=== PATIENT | female | born 1990 | race Caucasian/White ===

== ENCOUNTER → 2017-07-16 | Outpatient (CLI) | payer OTHER ==
[~2017-07-16] MED LIST: ADDERALL 10 MG10 MG PO
== END ==
LOC: M.ULTRA 15:03
DX: R92.8 Other abnormal and inconclusive findings on diagnostic imaging of breast (principal); N64.4 Mastodynia; N63.20 Unspecified lump in the left breast, unspecified quadrant

== ENCOUNTER → 2017-08-04 | Outpatient (CLI) | payer OTHER | LOC: M.MRI 13:12 | DX: N63.20 Unspecified lump in the left breast, unspecified quadrant (principal); R92.2 Inconclusive mammogram ==

== ENCOUNTER 2017-09-01 16:30 | Emergency (ER) | payer OTHER ==
[~2017-09-01] VITALS: Ht 177.8 cm; Wt 88.5 kg
[2017-09-01 17:31] LABS: URINE BILIRUBIN NEGATIVE (Negative); URINE BLOOD 3+ (Negative); URINE CLARITY CLEAR; URINE COLOR YELLOW; URINE GLUCOSE-RANDOM NEGATIVE (Negative); URINE KETONES NEGATIVE (Negative); URINE LEUKOCYTES-REFLEX NEGATIVE (Negative); URINE NITRITE-REFLEX NEGATIVE (Negative); URINE PROTEIN NEGATIVE (Negative); URINE UROBILINOGEN 0.2 E.U./dl (0.2-1.0)
[2017-09-01 18:04] LABS: SQUAMOUS 0-3 Few /LPF (0-3)
[2017-09-01 18:05] LABS: CASTS None Seen /LPF (None Seen); CRYSTALS None Seen /LPF (None Seen); MUCUS None Seen strn/LPF (None Seen); URINE RBC 3-10 Few /HPF (0-2); URINE WBC-REFLEX None Seen /HPF (0-5)
[2017-09-01 18:06] LABS: BACTERIA-REFLEX None Seen /HPF (None Seen)
[2017-09-01 18:13] VITALS: BP 115/60
== END 2017-09-01 18:13 | disposition home or self-care (01) ==
LOC: M.ERS 16:30
PROVIDERS: Physician Assistant
DX: N93.8 Other specified abnormal uterine and vaginal bleeding (principal)

== ENCOUNTER → 2017-09-18 | Outpatient (CLI) | payer OTHER | LOC: M.ULTRA 09-17 15:00 | DX: N83.201 Unspecified ovarian cyst, right side (principal); R93.8 Abnormal findings on diagnostic imaging of other specified body structures; N93.9 Abnormal uterine and vaginal bleeding, unspecified ==

== ENCOUNTER → 2017-09-30 | Outpatient (CLI) | payer OTHER | LOC: M.MRI 13:30 | DX: M75.102 Unspecified rotator cuff tear or rupture of left shoulder, not specified as traumatic (principal) ==

== ENCOUNTER 2017-10-19 10:01 | Emergency (ER) | payer OTHER ==
[~2017-10-19] VITALS: Ht 177.8 cm; Wt 89.8 kg
[2017-10-19 10:45] LABS: ABSOLUTE EOSINOPHILS 0.1 thou/uL (0.0-0.7); ABSOLUTE LYMPHOCYTES 1.4 thou/uL (0.8-5.3); ABSOLUTE MONOCYTES 0.6 thou/uL (0.0-1.2); ABSOLUTE NEUTROPHILS 5.1 thou/uL (1.6-8.1); BASOPHILS 0.5 %; EOSINOPHILS 0.7 %; HEMATOCRIT 40.8 % (37.0-47.0); HEMOGLOBIN 13.6 gm/dL (12.0-15.0); MCH 29.6 pg (26.0-34.0); MCHC 33.4 g/dL (28.0-37.0); MCV 88.6 fL (80.0-100.0); MONOCYTES 8.2 %; MPV 7.9 fl. (7.2-11.1); NUCLEATED RBCS 0 /100WBC; PLATELET COUNT* 289 thou/uL (150-400); POLYS 70.6 %; RDW-CV 13.1 % (10.5-14.5); WBC 7.2 thou/uL (4.0-11.0)
[2017-10-19 10:49] LABS: CALCIUM 8.8 mg/dL (8.5-10.1); CREATININE 0.7 mg/dL (0.6-1.3); POTASSIUM 3.7 mmol/L (3.5-5.1)
[2017-10-19 10:50] LABS: URINE BILIRUBIN NEGATIVE (Negative); URINE BLOOD NEGATIVE (Negative); URINE CLARITY CLEAR; URINE COLOR YELLOW; URINE GLUCOSE-RANDOM NEGATIVE (Negative); URINE KETONES NEGATIVE (Negative); URINE LEUKOCYTES-REFLEX NEGATIVE (Negative); URINE NITRITE-REFLEX NEGATIVE (Negative); URINE PROTEIN NEGATIVE (Negative); URINE SPECIFIC GRAVITY 1.015 (1.005-1.030); URINE UROBILINOGEN 0.2 E.U./dl (0.2-1.0)
[2017-10-19 11:00] LABS: ALBUMIN 3.6 g/dL (3.4-5.0); TOTAL BILIRUBIN 0.4 mg/dL (<0.1-1.0); TOTAL PROTEIN 7.8 g/dL (6.4-8.2)
[2017-10-19 11:01] LABS: AMP/METHAMP Negative (Negative); BARBITURATES Negative (Negative); BENZODIAZEPINES Negative (Negative); COCAINE Negative (Negative); METHADONE Negative (Negative); OPIATES POSITIVE (Negative); PCP Negative (Negative); THC Negative (Negative)
[2017-10-19 12:50] VITALS: BP 112/62
== END 2017-10-19 12:53 | disposition home or self-care (01) ==
LOC: M.ERS 10:01
PROVIDERS: Nurse Practitioner Family
DX: H57.04 Mydriasis (principal)

== ENCOUNTER → 2017-10-22 | Outpatient (CLI) | payer OTHER | LOC: M.MRI 10-20 16:30 | DX: M50.122 Cervical disc disorder at C5-C6 level with radiculopathy (principal) ==

== ENCOUNTER → 2017-11-03 | Outpatient (CLI) | payer OTHER | LOC: M.ULTRA 07:30 | DX: N93.9 Abnormal uterine and vaginal bleeding, unspecified (principal); R93.8 Abnormal findings on diagnostic imaging of other specified body structures ==

== ENCOUNTER → 2017-12-30 | Outpatient (CLI) | payer OTHER | LOC: M.RAD 09:36 | DX: N63.20 Unspecified lump in the left breast, unspecified quadrant (principal); R92.2 Inconclusive mammogram ==

== ENCOUNTER 2018-05-14 16:39 | Emergency (ER) | payer OTHER ==
[~2018-05-14] VITALS: Ht 177.8 cm; Wt 97.5 kg
[2018-05-14] MEDS ORDERED: FLEXERIL PO (16:53)
[2018-05-14] MEDS ORDERED: LIDOCAINE PAIN1 EACH TOP (16:53)
[2018-05-14] MEDS ORDERED: IBUPROFEN 800800 M1 PO (16:53)
[2018-05-14] MEDS ORDERED: NORCO 5-325 TA1 EACH PO (18:22)
[2018-05-14] MEDS ORDERED: MEDROLDOSEPACK PO (18:48)
[2018-05-14 19:29] VITALS: BP 121/73
== END 2018-05-14 19:29 | disposition home or self-care (01) ==
LOC: M.ERS 16:39
DX: R51 Headache (principal); M54.6 Pain in thoracic spine; M54.2 Cervicalgia

== ENCOUNTER 2019-05-19 16:23 | Emergency (ER) | payer BC ==
[~2019-05-19] VITALS: Ht 177.8 cm; Wt 98.9 kg
[~2019-05-19 16:23] MED LIST changes: +FLEXERIL PO; +IBUPROFEN 800800 M1 PO; +LIDOCAINE PAIN1 EACH TOP; +MEDROLDOSEPACK PO; +NORCO 5-325 TA1 EACH PO
[2019-05-19 16:55] LABS: URINE BILIRUBIN NEGATIVE (Negative); URINE BLOOD NEGATIVE (Negative); URINE CLARITY CLEAR; URINE COLOR YELLOW; URINE GLUCOSE-RANDOM NEGATIVE (Negative); URINE KETONES NEGATIVE (Negative); URINE LEUKOCYTES-REFLEX NEGATIVE (Negative); URINE NITRITE-REFLEX NEGATIVE (Negative); URINE PROTEIN NEGATIVE (Negative); URINE UROBILINOGEN 0.2 E.U./dl (0.2-1.0)
[2019-05-19 17:00] LABS: ABSOLUTE BASOPHILS 0.1 thou/uL (0.0-0.2); ABSOLUTE EOSINOPHILS 0.1 thou/uL (0.0-0.7); ABSOLUTE LYMPHOCYTES 2.3 thou/uL (0.8-5.3); ABSOLUTE MONOCYTES 0.8 thou/uL (0.0-1.2); ABSOLUTE NEUTROPHILS 2.9 thou/uL (1.6-8.1); BASOPHILS 0.8 %; EOSINOPHILS 1.2 %; HEMATOCRIT 37.5 % (37.0-47.0); HEMOGLOBIN 12.7 gm/dL (12.0-15.0); LYMPHOCYTES 37.4 %; MCH 28.3 pg (26.0-34.0); MCHC 33.8 g/dL (28.0-37.0); MCV 83.7 fL (80.0-100.0); MONOCYTES 12.4 %; MPV 7.5 fl. (7.2-11.1); NUCLEATED RBCS 0 /100WBC; PLATELET COUNT* 303 thou/uL (150-400); POLYS 48.2 %; RBC 4.48 mil/uL (4.20-5.00); RDW-CV 14.1 % (10.5-14.5); WBC 6.1 thou/uL (4.0-11.0)
[2019-05-19 17:02] LABS: AMP/METHAMP Negative (Negative); BARBITURATES POSITIVE (Negative); BENZODIAZEPINES Negative (Negative); COCAINE Negative (Negative); METHADONE Negative (Negative); OPIATES POSITIVE (Negative); PCP Negative (Negative); THC Negative (Negative)
[2019-05-19 17:07] LABS: CALCIUM 8.6 mg/dL (8.5-10.1); CREATININE 0.7 mg/dL (0.6-1.3); POTASSIUM 3.5 mmol/L (3.5-5.1)
[2019-05-19 17:11] LABS: ALBUMIN 3.7 g/dL (3.4-5.0); TOTAL BILIRUBIN 0.2 mg/dL (<0.1-1.0); TOTAL PROTEIN 7.6 g/dL (6.4-8.2)
[2019-05-19] MEDS ORDERED: LOMAIRA8 MG PO (17:34)
[2019-05-19] MEDS ORDERED: VERAPAMIL HCL40 MG PO (17:34)
[2019-05-19] MEDS ORDERED: CLONIDINE HCL0.2 M2 PO (17:35)
[2019-05-19] MEDS ORDERED: BUTALBIT-ACETA1 EACH PO (17:35)
[2019-05-19] MEDS ORDERED: BUPRENORPHINE1 EAC2 PO (17:36)
[2019-05-19] MEDS ORDERED: MECLIZINE HCL25 M1 PO (18:14)
[2019-05-19] MEDS ORDERED: PROMS25 WY RECTAL (18:14)
[2019-05-19 18:54] VITALS: BP 113/62
--- NOTE | 2019-05-20 09:43 | EKG ---
[place] [address] ELECTROCARDIOGRAM REPORT Name: RAUL PATEL Room: [facility]#: [id number] Admission: 05/19/19 Attend Phys: Discharge: 05/19/19 Date of : [birth year] Date of Service: 05/19/191803 Report #: [id number] THIS REPORT FOR: //name// [facility] ED Test Date: 2019-05-19 Test Time: 18:04:42 Pat Name: RAUL PATEL Department: Room: Gender: Sde: [facility] : 1990 Requested By: Che Guevara Order Number: [id number] MD: Bello Msoes Measurements Intervals [place] Rate: 69 P: 56 DC: 159 QRS: 63 QRSD: 91 T: 43 QT: 403 QTc: 432 Interpretive Statements Sinus rhythm No previous ECG available for comparison Electronically Signed On 05-20-2019 9:42:51 SHORT STORY WRITER by Bello Moses [email or web address] <ELECTRONICALLY SIGNED> By: Bello Moses MD, [facility] 05/20/19 0942 03 1804 Bello Moses MD, FACC /EPI
== END 2019-05-19 18:55 | disposition home or self-care (01) ==
LOC: M.ERS 16:23
PROVIDERS: Physician Assistant
DX: R11.2 Nausea with vomiting, unspecified (principal); R42 Dizziness and giddiness; R51 Headache; Z90.49 Acquired absence of other specified parts of digestive tract; Z79.899 Other long term (current) drug therapy

== ENCOUNTER 2019-12-19 17:10 | Emergency (ER) | payer OTHER ==
[~2019-12-19] VITALS: Ht 177.8 cm; Wt 86.2 kg
[~2019-12-19 17:10] MED LIST changes: +BUPRENORPHINE1 EAC2 PO; +BUTALBIT-ACETA1 EACH PO; +CLONIDINE HCL0.2 M2 PO; +LOMAIRA8 MG PO; +MECLIZINE HCL25 M1 PO; +PROMS25 WY RECTAL; +VERAPAMIL HCL40 MG PO
[2019-12-19 18:18] LABS: ABSOLUTE LYMPHOCYTES 1.3 thou/uL (0.8-5.3); ABSOLUTE MONOCYTES 0.6 thou/uL (0.0-1.2); ABSOLUTE NEUTROPHILS 7.6 thou/uL (1.6-8.1); BASOPHILS 0.2 %; EOSINOPHILS 0.1 %; HEMATOCRIT 39.2 % (37.0-47.0); HEMOGLOBIN 13.5 gm/dL (12.0-15.0); LYMPHOCYTES 14.1 %; MCH 28.8 pg (26.0-34.0); MCHC 34.4 g/dL (28.0-37.0); MCV 83.7 fL (80.0-100.0); MONOCYTES 6.2 %; MPV 7.5 fl. (7.2-11.1); NUCLEATED RBCS 0 /100WBC; PLATELET COUNT* 316 thou/uL (150-400); POLYS 79.4 %; RBC 4.68 mil/uL (4.20-5.00); RDW-CV 13.1 % (10.5-14.5); WBC 9.6 thou/uL (4.0-11.0)
[2019-12-19 18:25] LABS: CALCIUM 8.5 mg/dL (8.5-10.1); CREATININE 0.8 mg/dL (0.6-1.3); POTASSIUM 3.7 mmol/L (3.5-5.1)
[2019-12-19 18:28] LABS: INFLUENZA A ANTIGEN Negative (Negative); INFLUENZA B ANTIGEN Negative (Negative)
[2019-12-19 18:30] LABS: ALBUMIN 3.7 g/dL (3.4-5.0); TOTAL BILIRUBIN 0.4 mg/dL (<0.1-1.0); TOTAL PROTEIN 7.6 g/dL (6.4-8.2)
[2019-12-19 19:21] LABS: URINE BILIRUBIN NEGATIVE (Negative); URINE BLOOD NEGATIVE (Negative); URINE CLARITY CLEAR; URINE COLOR YELLOW; URINE GLUCOSE-RANDOM NEGATIVE (Negative); URINE KETONES TRACE (Negative); URINE LEUKOCYTES-REFLEX NEGATIVE (Negative); URINE NITRITE-REFLEX NEGATIVE (Negative); URINE PROTEIN NEGATIVE (Negative); URINE SPECIFIC GRAVITY 1.025 (1.005-1.030); URINE UROBILINOGEN 0.2 E.U./dl (0.2-1.0)
[2019-12-19] MEDS ORDERED: PHENERGAN 25 MG25 M1 PO (19:33)
[2019-12-19 19:54] VITALS: BP 126/70
--- NOTE | 2019-12-20 16:04 | EKG ---
[place] [address] ELECTROCARDIOGRAM REPORT Name: RAUL PATEL Room: [facility]#: [id number] Admission: 12/19/19 Attend Phys: Discharge: 12/19/19 Date of : [birth year] Date of Service: 12/19/19 1759 Report #: [id number] THIS REPORT FOR: //name// [facility] ED Test Date: 2019-12-19 Test Time: 17:59:32 Pat Name: RAUL PATEL Department: Room: Gender: [place] Wirer: [facility] : 1990 Requested By: Quyen Tobar Order Number: [id number] MD: Bello Moses Measurements Intervals [place] Rate: 74 P: 48 MN: 144 QRS: 54 QRSD: 91 T: 46 QT: 395 QTc: 439 Interpretive Statements Sinus rhythm Compared to ECG 05/19/2019 18:04:42 No significant changes Electronically Signed On 12-20-2019 16:04:01 CDT by Bello Moses [email or web address] <ELECTRONICALLY SIGNED> By: Bello Moses MD, [facility] 12/20/19 1604 [id number] Bello Moses MD, FAC /EPI
== END 2019-12-19 19:54 | disposition home or self-care (01) ==
LOC: M.ERS 17:10
PROVIDERS: Nurse Practitioner Family
DX: R11.2 Nausea with vomiting, unspecified (principal); R51 Headache; R53.83 Other fatigue; R53.1 Weakness; Z20.828 Contact with and (suspected) exposure to other viral communicable diseases; Z98.890 Other specified postprocedural states; Z90.49 Acquired absence of other specified parts of digestive tract; Z79.899 Other long term (current) drug therapy